=== PATIENT | male | born 1950 | race Caucasian/White ===

== ENCOUNTER 2018-02-03 09:48 | Day surgery (SDC) | payer MEDICARE, BC ==
[~2018-02-03 09:48] MED LIST: MIDAZOLAM 2 MG/2 ML SOL ONE
[2018-02-03] MEDS ORDERED: ACETAZOLAMIDE 250 MG PO ONE (10:06)
[2018-02-03] MEDS: TETRACAINE HCL 0.5 % 1 DROP SOL ONE ×3 (10:09→11:12)
[2018-02-03] MEDS: PHENYLEPHRINE HCL 10% OPHTHAL SOL ONE ×2 (10:10→10:21)
[2018-02-03] MEDS: CYCLOPENTOLATE 1% SOL ONE ×3 (10:10→10:22)
[2018-02-03] MEDS: KETOROLAC 0.5% OPTH 60 DROP SOL ONE ×3 (10:10→10:22)
[2018-02-03 10:14] VITALS: PULSE 57; O2SAT 95
[2018-02-03] MEDS ORDERED: FENTANYL 100MCG/2ML SOL ONE (10:21)
[2018-02-03] MEDS ORDERED: IMPRIMIS ONE (11:06)
[2018-02-03] MEDS ORDERED: POVIDONE IODINE 5% SOL ONE (11:06)
[2018-02-03] MEDS ORDERED: LIDOCAINE HCL 1% MPF 30 SOL ONE (11:06)
[2018-02-03] MEDS ORDERED: BSS 500 ML 500 ML IR ONE (11:07)
[2018-02-03 11:40] VITALS: BP 131/77; RESP 18; TEMP 97.1
== END 2018-02-03 12:00 | disposition home or self-care (01) | DRG 125 ==
LOC: SURG 09:48
PROVIDERS: ATTEND Ophthalmology
DX: H25.89 Other age-related cataract (principal); E11.9 Type 2 diabetes mellitus without complications
CPT/HCPCS: J2250; J3010; A9270-GY; J2001